=== PATIENT | male | born 1935 | race Native Hawaiian/Other Pacific Islander ===

== ENCOUNTER 2019-03-04 10:25 | Emergency (ER) | payer MEDICARE, MEDICAID ==
[~2019-03-04] VITALS: Ht 165.1 cm; Wt 73.2 kg
[~2019-03-04 10:25] MED LIST: AMLOD/BENAZP1 CA2; BACTRIM DS1 TAB PO; CIPROFLOXACN500 MG PO; GLIPIZIDE ER5 MG; LORTAB 7.5 PO; METFORMIN HCL1000 MG; SIMVASTATIN40 MG
[2019-03-04 10:53] LABS: HEMOGLOBIN 13.8 g/dl (14.0-18.0); IMMATURE GRANULOCYTES 0.4 % (0.0-5.0); MEAN CELL VOLUME 91.1 fL CALC (80.0-100.0); MEAN CORPUSCULAR HGB 29.9 pG CALC (26.0-32.0); MEAN CORPUSCULAR HGB CONC 32.9 g/L CALC (32.0-36.0); NEUT# 7.23 thou/uL (1.82-7.42); RED BLOOD COUNT 4.61 mill/uL (4.70-6.10); RED CELL DISTRI WIDTH 12.4 % (11.5-15.5)
[2019-03-04 10:56] LABS: PROTHROMBIN TIME 10.6 SECONDS (9.0-12.5)
[2019-03-04 11:23] VITALS: BP 169/110
[2019-03-04 11:29] LABS: ALBUMIN 4.9 g/dL (3.2-5.0); ALKALINE PHOSPHATASE 144 u/l (38-126); ANION GAP 15 (6-22 (CALC)); BUN 22 mg/dL (8-23); BUN/CREATININE RATIO 21 (12-20 (CALC)); CARBON DIOXIDE 28 mmol/l (22-30); CHLORIDE 103 mmol/l (95-108); GFR > 60 ML/MIN (>=60 (CALC)); GFR FOR AFR.AMER. > 60 ML/MIN (>=60 (CALC)); LIPASE 769 u/l (23-300); POTASSIUM 4.3 mmol/l (3.5-5.1); SGOT/AST 28 u/l (19-48); SODIUM 142 mmol/l (137-146)
== END 2019-03-04 11:33 | disposition short-term general hospital (02) ==
LOC: ED 10:25
PROVIDERS: Family Medicine
DX: I21.4 Non-ST elevation (NSTEMI) myocardial infarction (principal); R07.9 Chest pain, unspecified; R94.31 Abnormal electrocardiogram [ECG] [EKG]; I10 Essential (primary) hypertension
CPT/HCPCS: J1644

== ENCOUNTER 2020-02-12 15:53 | Emergency (ER) | payer MEDICARE, MEDICAID ==
[~2020-02-12] VITALS: Ht 165.1 cm; Wt 70.0 kg
[2020-02-12 16:21] LABS: HEMATOCRIT 46.6 % (39.0-50.0); HEMOGLOBIN 13.9 g/dl (14.0-18.0); IMMATURE GRANULOCYTES 0.6 % (0.0-5.0); MEAN CELL VOLUME 96.3 fL CALC (80.0-100.0); MEAN CORPUSCULAR HGB 28.7 pG CALC (26.0-32.0); MEAN CORPUSCULAR HGB CONC 29.8 g/dL CAL (32.0-36.0); NEUT# 5.96 thou/uL (1.82-7.42); RED BLOOD COUNT 4.84 mill/uL (4.70-6.10); RED CELL DISTRI WIDTH 12.7 % (11.5-15.5)
[2020-02-12 16:41] LABS: ALBUMIN 4.2 g/dL (3.2-5.0); ALKALINE PHOSPHATASE 98 u/l (38-126); BILIRUBIN, TOTAL 1.1 mg/dL (0.0-1.4); CHLORIDE 105 mmol/l (95-108); ETHYL ALCOHOL 0 mg/dl (0-30); POTASSIUM 4.7 mmol/l (3.5-5.1); SODIUM 144 mmol/l (137-146); TOTAL PROTEIN 8.6 g/dL (6.3-8.2)
[2020-02-12 16:48] LABS: ANION GAP 22 (6-22 (CALC)); BUN 68 mg/dL (8-23); BUN/CREATININE RATIO 25 (12-20 (CALC)); CARBON DIOXIDE 22 mmol/l (22-30); CPK > 1600 u/l (52-200); CREATININE 2.7 mg/dL (0.7-1.3); GFR 23 ML/MIN (>=60 (CALC)); GFR FOR AFR.AMER. 27 ML/MIN (>=60 (CALC)); SGOT/AST 91 u/l (19-48)
[2020-02-12 16:52] LABS: INTERNATIONAL NORMALIZED RATIO 1.1 RATIO (0.7-1.3); PROTHROMBIN TIME 10.6 SECONDS (9.0-12.5)
[2020-02-12 17:45] LABS: URINE BLOOD DIPSTICK LARGE (NEGATIVE); URINE COLOR YELLOW; URINE GLUCOSE - DIPSTICK >=1000 mg/dL (NEGATIVE); URINE KETONE 15 mg/dL (NEGATIVE); URINE LEUK ESTERASE NEGATIVE (NEGATIVE); URINE NITRITE - DIPSTICK NEGATIVE (Negative); URINE PH 6.5 (4.5-8.0); URINE PROTEIN - DIPSTICK >=300 mg/dL (NEG-TRACE); URINE SPECIFIC GRAVITY >=1.030; URINE UROBILINOGEN - DIPSTICK 0.2 E.U./dL (0.2)
[2020-02-12 17:46] LABS: URINE BILIRUBIN - DIPSTICK NEGATIVE (NEGATIVE)
[2020-02-12 17:56] LABS: URINE AMORPH SEDIMENT MANY hpf (NONE-FER); URINE FINE GRAN CAST FEW lpf; URINE WBC 0-2 WBC/hpf (0-5)
[2020-02-12 18:30] VITALS: BP 170/73
== END 2020-02-12 19:03 | disposition short-term general hospital (02) ==
LOC: ED 15:53
PROVIDERS: Student in an Organized Health Care Education/Training Program
PROC: 0T9B70Z Drainage of Bladder with Drainage Device, Via Natural or Artificial Opening (ICD-10-PCS; principal; 2020-02-12)
DX: U07.1 COVID-19 (principal); G93.41 Metabolic encephalopathy; E11.10 Type 2 diabetes mellitus with ketoacidosis without coma; R79.89 Other specified abnormal findings of blood chemistry; N17.9 Acute kidney failure, unspecified; M62.82 Rhabdomyolysis; I10 Essential (primary) hypertension; Z79.84 Long term (current) use of oral hypoglycemic drugs

== ENCOUNTER 2022-01-08 11:01 | Emergency (ER) | payer MEDICARE, MEDICAID ==
[~2022-01-08] VITALS: Ht 165.1 cm; Wt 68.0 kg
[2022-01-08 11:12] VITALS: BP 182/93
[2022-01-08 11:31] VITALS: BP 163/80
[2022-01-08 12:00] VITALS: BP 154/78
[2022-01-08 12:32] VITALS: BP 155/90
[2022-01-08 13:30] LABS: HEMOGLOBIN 12.3 g/dl (14.0-18.0); IMMATURE GRANULOCYTES 0.5 % (0.0-5.0); MEAN CELL VOLUME 93.6 fL CALC (80.0-100.0); MEAN CORPUSCULAR HGB 29.4 pG CALC (26.0-32.0); MEAN CORPUSCULAR HGB CONC 31.4 g/dL CAL (32.0-36.0); NEUT# 3.45 thou/uL (1.82-7.42); RED BLOOD COUNT 4.19 mill/uL (4.70-6.10); RED CELL DISTRI WIDTH 12.4 % (11.5-15.5)
[2022-01-08 13:33] LABS: HEMATOCRIT 39.2 % (39.0-50.0)
[2022-01-08 13:43] LABS: URINE BILIRUBIN - DIPSTICK NEGATIVE (NEGATIVE); URINE BLOOD DIPSTICK LARGE (NEGATIVE); URINE COLOR BROWN; URINE GLUCOSE - DIPSTICK >=1000 mg/dL (NEGATIVE); URINE KETONE TRACE mg/dL (NEGATIVE); URINE PROTEIN - DIPSTICK 100 mg/dL (NEG-TRACE); URINE SPECIFIC GRAVITY 1.015
[2022-01-08 13:45] LABS: ALBUMIN 3.7 g/dL (3.2-5.0); ALKALINE PHOSPHATASE 111 u/l (38-126); CHLORIDE 102 mmol/l (95-108); POTASSIUM 3.9 mmol/l (3.5-5.1); TOTAL PROTEIN 7.1 g/dL (6.3-8.2)
[2022-01-08 13:52] LABS: ANION GAP 10 (6-22 (CALC)); BILIRUBIN, TOTAL 0.5 mg/dL (0.0-1.4); BUN 9 mg/dL (8-23); BUN/CREATININE RATIO 9 (12-20 (CALC)); CARBON DIOXIDE 28 mmol/l (22-30); GFR FOR AFR.AMER. > 60 ML/MIN (>=60 (CALC)); GFR OTHER RACES > 60 ML/MIN (>=60 (CALC)); SGOT/AST 16 u/l (19-48); SODIUM 136 mmol/l (137-146)
[2022-01-08 13:54] LABS: URINE LEUK ESTERASE SMALL (NEGATIVE); URINE NITRITE - DIPSTICK POSITIVE (Negative)
[2022-01-08 13:56] LABS: URINE RBC TNTC RBC/hpf (0-5)
[2022-01-08] MEDS ORDERED: KEFLEX500 MG PO (14:46)
[2022-01-08 16:21] VITALS: BP 164/95
[2022-01-08 16:30] VITALS: BP 172/91
[2022-01-08] MEDS ORDERED: ULTRAM50 M1 PO (22:37)
== END 2022-01-08 16:36 | disposition home or self-care (01) ==
LOC: ED 11:01
PROVIDERS: Emergency Medicine
DX: M47.816 Spondylosis without myelopathy or radiculopathy, lumbar region (principal); N39.0 Urinary tract infection, site not specified; E11.65 Type 2 diabetes mellitus with hyperglycemia; I10 Essential (primary) hypertension; E78.5 Hyperlipidemia, unspecified; Z91.14 Patient's other noncompliance with medication regimen

== ENCOUNTER 2022-11-10 08:17 | Emergency (ER) | payer MEDICARE, MEDICAID ==
[~2022-11-10] VITALS: Ht 165.1 cm; Wt 74.8 kg
[2022-11-10] VITALS (11 sets, daily range): BP systolic 161–190; BP diastolic 83–105
[~2022-11-10 08:17] MED LIST changes: +KEFLEX500 MG PO; +ULTRAM50 M1 PO
[2022-11-10 09:37] LABS: ALBUMIN 4.3 g/dL (3.2-5.0); ALKALINE PHOSPHATASE 118 u/l (38-126); ANION GAP 12 (6-22 (CALC)); BASO% 0.2 % (0-3); BILIRUBIN, TOTAL 0.8 mg/dL (0.2-1.3); BUN 23 mg/dL (8-23); BUN/CREATININE RATIO 18 (12-20 (CALC)); CARBON DIOXIDE 28 mmol/l (22-30); CHLORIDE 103 mmol/l (95-108); CREATININE 1.3 mg/dL (0.7-1.3); EOS% 1.2 % (0-8); GFR FOR AFR.AMER. > 60 ML/MIN (>=60 (CALC)); GFR OTHER RACES 52 ML/MIN (>=60 (CALC)); HEMATOCRIT 37.3 % (39.0-50.0); HEMOGLOBIN 11.8 g/dl (14.0-18.0); IMMATURE GRANULOCYTES 0.3 % (0.0-5.0); LYMPH% 22.4 % (15-41); MEAN CELL VOLUME 91.6 fL CALC (80.0-100.0); MEAN CORPUSCULAR HGB CONC 31.6 g/dL CAL (32.0-36.0); MONO% 19.1 % (2-13); NEUT# 3.39 thou/uL (1.82-7.42); NEUT% 56.8 % (42-76); POTASSIUM 3.7 mmol/l (3.5-5.1); RED BLOOD COUNT 4.07 mill/uL (4.70-6.10); RED CELL DISTRI WIDTH 12.5 % (11.5-15.5); SGOT/AST 41 u/l (19-48); SODIUM 139 mmol/l (137-146); TOTAL PROTEIN 7.8 g/dL (6.3-8.2)
[2022-11-10] MEDS ORDERED: OMNI-PAC300 MG PO (11:25)
== END 2022-11-10 13:24 | disposition home or self-care (01) ==
LOC: ED 08:17
PROVIDERS: Family Medicine
DX: S01.111A Laceration without foreign body of right eyelid and periocular area, initial encounter (principal); R42 Dizziness and giddiness; I10 Essential (primary) hypertension; E11.9 Type 2 diabetes mellitus without complications; E78.5 Hyperlipidemia, unspecified; W18.30XA Fall on same level, unspecified, initial encounter